=== PATIENT | female | born 1965 | race American Indian/Alaskan Native ===

== ENCOUNTER 2017-09-20 06:24 | Day surgery (SDC) | payer BC ==
[2017-09-20] MEDS ORDERED: WATER FOR IRRIG STERILE IR ONE (07:11)
[2017-09-20] MEDS ORDERED: DIPRIVAN 10 MG/ML IV ONE ×5 (07:41→10:16)
--- NOTE | 2017-09-20 08:08 | Discharge Summary ---
Providers - Providers Date of discharge: 09/20/17 Attending physician: VALERIA ANTHONY Primary care physician: CECILIA APONTE Hospitalization Condition: Good Procedures: egd Disposition: TO HOME OR SELFCARE Core Measure Documentation - Palliative Care Palliative Care/ Comfort Measures: Not Applicable - Core Measures Any of the following diagnoses?: none Exam - Physical Exam Narrative exam: unchanged from pre-op Plan Activity: no restrictions Weight Bearing Status: Full Weight Bearing Diet: regular Follow up with: CECILIA APONTE MD [Primary Care Provider] - 7 Days
--- NOTE | 2017-09-20 08:09 | Operative Report ---
Operative Report Operative Report: OPERATIVE REPORT - EGD DATE 09/20/17 SURGERY: Upper endoscopy. SURGEON: Zuleika Snell M.D. PRE OP DX: dyspepsia POST OP DX: hiatal hernia TYPE OF ANESTHESIA: MAC. ESTIMATED BLOOD LOSS: None. COMPLICATIONS: None. SPECIMENS REMOVED: None. FINDINGS: 1. Small hiatal hernia. 2. Otherwise, normal esophagus, stomach and first portion of duodenum. INDICATIONS:INDICATION FOR PROCEDURE: Patient is a 52-year-old female with a long history of morbid obesity. She is planned to have a weight loss procedure and is here for preoperative planning EGD. We are looking for any abnormal anatomy or pathology that may prohibit or delay her procedure. PROCEDURE DETAILS: After consent was reviewed, patient was taken back to the operating room where patient was placed in the left lateral decubitus position and a bite block was placed in the mouth. After a time-out was called, MAC anesthesia was initiated. I then passed the endoscope into her oropharynx, into her esophagus, visualized the entire esophagus, which was all within normal limits. I then visualized the stomach and the first portion of the duodenum and there were no abnormalities I could clearly visualize. I then retroflexed the scope in the stomach and visualized the hiatus and I could see a small hiatal hernia. I then desufflated the stomach and removed the endoscope. Patient tolerated procedure well and was transferred to recovery room in good and stable condition.
--- NOTE | 2017-09-20 08:24 | Anesthesia Consultation ---
Anesthesia Consult and Med Hx Date of service: 09/20/17 - Airway Anesthetic Teeth Evaluation: Good ROM Head & Neck: Adequate Mental/Hyoid Distance: Adequate Mallampati Class: Class I Intubation Access Assessment: Good - Pulmonary Exam CTA: Yes - Cardiac Exam Cardiac Exam: RRR - Pre-Operative Health Status ASA Pre-Surgery Classification: ASA3 Proposed Anesthetic Plan: MAC - Pulmonary Hx Sleep Apnea: Yes - Cardiovascular System Hx Hypertension: Yes - Gastrointestinal Hx Gastroesophageal Reflux Disease: Yes (on meds) - Endocrine Hx Non-Insulin Dependent Diabetes: Yes - Other Systems Hx Obesity: Yes - Additional Comments Anesthesia Medical History Comments: breast CA in 2009
--- NOTE | 2017-09-20 08:25 | Anesthesia Day of Surgery ---
Anesthesia Day of Surgery - Day of Surgery Patient Examined: Yes Patient H&P Reviewed: Yes Patient is NPO: Yes
[2017-09-20] MEDS: NACL 0.9% 1000 ML 1,000 ML IV SCH ×2 (09:23→10:42)
[2017-09-20] MEDS ORDERED: XYLOCAINE MPF 2% ONE (10:30)
[2017-09-20 10:42] VITALS: BP 122/68
--- NOTE | 2017-09-20 10:58 | Post Anesthesia Evaluation ---
- Post Anesthesia Evaluation Patient Participated: Yes Airway Patent: Yes Stable Respiratory Function: Yes Nausea/Vomiting: No Temp > 96.8F: Yes Pain Manageable: Yes Adequeate Hydration: Yes Anesthesia Complications: No Block Receding Appropriately: Not Applicable Patient on Ventilator: No
== END 2017-09-20 06:25 | disposition home or self-care (01) ==
LOC: GIO 06:24
PROVIDERS: ATTEND Surgery
DX: R10.13 Epigastric pain (principal); K44.9 Diaphragmatic hernia without obstruction or gangrene; E11.9 Type 2 diabetes mellitus without complications; I10 Essential (primary) hypertension; F32.9 Major depressive disorder, single episode, unspecified; G47.30 Sleep apnea, unspecified; K21.9 Gastro-esophageal reflux disease without esophagitis; M06.80 Other specified rheumatoid arthritis, unspecified site; Z68.41 Body mass index [BMI] 40.0-44.9, adult; E66.01 Morbid (severe) obesity due to excess calories; Z90.10 Acquired absence of unspecified breast and nipple; Z96.652 Presence of left artificial knee joint; Z99.89 Dependence on other enabling machines and devices; Z96.89 Presence of other specified functional implants; Z80.42 Family history of malignant neoplasm of prostate; Z83.3 Family history of diabetes mellitus; Z82.49 Family history of ischemic heart disease and other diseases of the circulatory system; Z79.899 Other long term (current) drug therapy
CPT/HCPCS: 43235; 82962; J2704; J7030

== ENCOUNTER 2017-09-26 06:16 | Inpatient (IN) | payer BC ==
[~2017-09-26 06:16] MED LIST: ADRENALIN SUB-Q ONE; MARCAINE 0.5% INFILTRATI ONE; NACL 0.9% 1000 ML 1,000 ML IV SCH; NACL 0.9% IR ONE; XYLOCAINE 1% 20 mL INFILTRATI ONE
[2017-09-26] MEDS ORDERED: ANCEF/STERILE WATER 2 GM/20 ML IV NR (07:00)
[2017-09-26] MEDS ORDERED: VERSED IV NR (07:00)
[2017-09-26] MEDS ORDERED: PEPCID IV NR (07:00)
[2017-09-26] MEDS ORDERED: TRANSDERM-SCOP TD NR (07:00)
[2017-09-26] MEDS ORDERED: LOVENOX SUB-Q NR (07:00)
[2017-09-26] MEDS ORDERED: FLAGYL 500 MG/100 ML 500 MG/100 ML BAG IV NR (07:00)
--- NOTE | 2017-09-26 07:06 | Anesthesia Consultation ---
Anesthesia Consult and Med Hx Date of service: 09/26/17 - Airway Anesthetic Teeth Evaluation: Good ROM Head & Neck: Adequate Mental/Hyoid Distance: Adequate Mallampati Class: Class I Intubation Access Assessment: Good - Pulmonary Exam CTA: Yes - Cardiac Exam Cardiac Exam: RRR - Pre-Operative Health Status ASA Pre-Surgery Classification: ASA3 Proposed Anesthetic Plan: General - Pulmonary Hx Smoking: Yes (1/2 A PACK DAILY FOR 15 YEARS, QUIT 4MOS AGO) Hx Sleep Apnea: Yes (cpap) - Cardiovascular System Hx Hypertension: Yes - Central Nervous System Hx Psychiatric Problems: Yes - Gastrointestinal Hx Gastroesophageal Reflux Disease: Yes (on meds) - Endocrine Hx Non-Insulin Dependent Diabetes: Yes (diet controlled) - Hematic Hx Anemia: Yes - Other Systems Hx Alcohol Use: No Hx Substance Use: No Hx Cancer: Yes Hx Obesity: Yes (morbid)
[2017-09-26] MEDS ORDERED: ZOFRAN IV PRN ×2 (07:07→07:29)
[2017-09-26] MEDS ORDERED: MORPHINE IV PRN ×2 (07:07→07:29)
--- NOTE | 2017-09-26 07:07 | Anesthesia Day of Surgery ---
Anesthesia Day of Surgery - Day of Surgery Patient Examined: Yes Patient H&P Reviewed: Yes Patient is NPO: Yes
[2017-09-26 07:08] LABS: Basophils % (Auto) 0.6 % (0.0-1.8); Eosinophils % (Auto) 3.4 % (0.0-4.3); Hematocrit 37.2 % (30.3-42.9); Hemoglobin 11.5 gm/dl (10.1-14.3); Mean Corpuscular HGB Conc 31 % (30-34); Mean Corpuscular Volume 72 fl (79-97); Platelet Count 223 K/mm3 (140-440); Red Blood Count 5.17 M/mm3 (3.65-5.03); Red Cell Distribution Width 14.1 % (13.2-15.2); White Blood Count 5.2 K/mm3 (4.5-11.0)
[2017-09-26 07:15] LABS: Mean Corpuscular Hemoglobin 22 pg (28-32)
[2017-09-26 07:22] LABS: Bacteria,Urine 1+ /HPF (Negative); Bilirubin,Urine NEG (Negative); Blood,Urine SM (Negative); Ketones,Urine 20 mg/dL (Negative); Leukocyte Esterase,Urine LG (Negative); Mucus,Urine FEW /HPF; Nitrite,Urine NEG (Negative); Protein,Urine <15 mg/dL mg/dL (Negative); Urobilinogen,Urine < 2.0 mg/dL (<2.0)
[2017-09-26 07:27] LABS: Alanine Aminotransferase 30 units/L (7-56); Albumin 3.8 g/dL (3.9-5); Albumin/Globulin Ratio 1.2 %; Alkaline Phosphatase 38 units/L (35-129); Anion Gap 18 mmol/L; BUN/Creatinine Ratio 19; Blood Urea Nitrogen 13 mg/dL (7-17); Calcium 9.2 mg/dL (8.4-10.2); Carbon Dioxide 25 mmol/L (22-30); Chloride 99.3 mmol/L (98-107); Glucose 111 mg/dL (65-100); Potassium 3.4 mmol/L (3.6-5.0); Sodium 139 mmol/L (137-145); Total Protein 7.1 g/dL (6.3-8.2)
[2017-09-26] MEDS ORDERED: DILAUDID ONE (07:27)
[2017-09-26] MEDS ORDERED: DIPRIVAN 10 MG/ML IV ONE (07:27)
[2017-09-26] MEDS ORDERED: XYLOCAINE 1% 20 mL ONE (07:29)
[2017-09-26] MEDS ORDERED: SUBLIMAZE ONE (07:29)
[2017-09-26] MEDS ORDERED: MARCAINE 0.5% 30 ML INFILTRATI ONE (07:29)
[2017-09-26] MEDS ORDERED: MYLICON PO PRN (07:29)
[2017-09-26] MEDS ORDERED: REGLAN IV PRN (07:29)
[2017-09-26] MEDS ORDERED: NORCO PO PRN (07:29)
[2017-09-26] MEDS ORDERED: APRESOLINE IV PRN (07:29)
[2017-09-26] MEDS ORDERED: ADRENALIN ONE (07:29)
[2017-09-26] MEDS ORDERED: DILAUDID IV PRN (07:32)
[2017-09-26] MEDS ORDERED: NEURONTIN PO NR (08:00)
[2017-09-26] MEDS ORDERED: ePHEDrine SULFATE ONE (08:10)
[2017-09-26] MEDS ORDERED: NACL 0.9% IR ONE ×2 (08:25)
[2017-09-26] MEDS ORDERED: ADRENALIN SUB-Q ONE (08:25)
[2017-09-26] MEDS ORDERED: XYLOCAINE 1% 20 mL INFILTRATI ONE (08:25)
[2017-09-26] MEDS ORDERED: MARCAINE 0.5% INFILTRATI ONE (08:25)
[2017-09-26] MEDS ORDERED: ZEMURON IV ONE (10:25)
[2017-09-26] MEDS ORDERED: DECADRON ONE (10:25)
[2017-09-26] MEDS ORDERED: XYLOCAINE MPF 2% ONE (10:25)
[2017-09-26] MEDS ORDERED: ROBINUL ONE (10:25)
[2017-09-26] MEDS ORDERED: NEOSTIGMINE ONE (10:25)
[2017-09-26] MEDS ORDERED: ZOFRAN ONE (10:25)
--- NOTE | 2017-09-26 10:45 | Operative Report ---
Operative Report Operative Report: POSTOPERATIVE DIAGNOSES: Morbid obesity PROCEDURES PERFORMED: 1. Laparoscopic gastric bypass. 2. EGD. ANESTHESIA: General endotracheal tube intubation. SPECIMENS: None. ESTIMATED BLOOD LOSS: Less than 10 mL. FINDINGS: Normal anatomy. COMPLICATIONS: None. INDICATION: Ms. Kim is a 52-year-old female with history of morbid obesity. She has tried numerous methods to loose weight but has been unsuccessful. She signed informed consent and expressed understanding of risks and benefits. DESCRIPTION OF PROCEDURE: Patient was brought to the OR suite, laid in supine position. Bilateral lower extremity SCDs were placed. General anesthesia was induced via successful endotracheal tube intubation. Patient's abdomen was prepped and draped in sterile fashion. Veress needle was inserted with ease into left upper quadrant. Insufflation to 12-15 was completed. Next using Optiview technique, a 12-mm trocar was placed into the abdominal cavity under direct vision. There was noted to be no gross injury to any intraabdominal structures. at the site of the veress needle insertion and the veress needle was removed. 5 working trocars were placed under direct visualization, 12 mm in the right mid abdomen mid clavicular line and four 5-mm trocars in the right upper quadrant, epigastric, left upper quadrant and left mid abdomen. At this time, the ligament of Treitz identified and followed down approximately 30 cm and the jejunum was transected. The distal segment of jejunum was then traced for approximately 75 cm and a stable effy-[id number]-wqfw jejunojejunostomy was performed. The common enterotomy was closed with 2 firings of the endoscopic stapler. The mesenteric defect was closed with running Surgidac suture. This anastomosis was found to be patent without kink, obstruction or bleeding. At this time, the patient was placed in steep reverse Trendelenburg position. A liver retractor was placed through the epigastric port to elevate the left lateral lobe of the liver. A small gastric pouch was formed. The Boris limb was then brought in an antegastric antecolic fashion and secured with 2 stay sutures to the gastric pouch. After this, the enterotomies were made with Harmonic scalpel, and a snoy-oo-tdws stapled gastrojejunostomy was performed with a mechanical stapler. After this, a 2-layer running closure using Polysorb suture were done, the first being mucosal approximation prior to completion of the first layer. Next an EGD scope beyond the anastomosis to act as a stent. The first layer was completed, the second was then performed. After this, the EGD was retracted slightly. A bowel clamp was placed in a proximal Boris limb. The anastomosis was submerged under saline. Via intraluminal EGD insufflation, there was noted be no bubbles in the saline indicating an airtight anastomosis. There was noted to be no obstruction or bleeding intraluminally in the pouch or the anastomosis. At this time, the scope was removed. The saline was aspirated. Tiseel was placed over the anastomosis. All trocars were removed under direct visualization and the abdomen was then desufflated. The skin incisions were closed with 4-0 Monocryl followed by Dermabond dressings. Patient was awoken and taken to recovery in stable condition. All counts were correct.
[2017-09-26] MEDS ORDERED: LACTATED RINGERS 1,000 ML IV SCH (11:00)
--- NOTE | 2017-09-26 11:18 | Post Anesthesia Evaluation ---
- Post Anesthesia Evaluation Patient Participated: Yes Airway Patent: Yes Stable Respiratory Function: Yes Temp > 96.8F: Yes Pain Manageable: Yes Adequeate Hydration: Yes Anesthesia Complications: No
[2017-09-26] MEDS: FLAGYL 500 MG/100 ML 500 MG/100 ML BAG IV SCH ×2 (15:56→22:40)
[2017-09-26] MEDS ORDERED: ANCEF/NS 1 GM/50 ML 1 GM/50 ML BAG IV SCH (16:00)
[2017-09-26] MEDS: ceFAZolin 1 GM in NACL 0.9% 20 ML IV SCH (18:35)
[2017-09-27] MEDS: ceFAZolin 1 GM in NACL 0.9% 20 ML IV SCH (03:00)
[2017-09-27 04:02] LABS: Basophils % (Auto) 0.2 % (0.0-1.8); Hematocrit 34.1 % (30.3-42.9); Hemoglobin 10.9 gm/dl (10.1-14.3); Mean Corpuscular HGB Conc 32 % (30-34); Mean Corpuscular Volume 73 fl (79-97); Platelet Count 190 K/mm3 (140-440); Red Blood Count 4.68 M/mm3 (3.65-5.03); Red Cell Distribution Width 14.3 % (13.2-15.2); White Blood Count 9.9 K/mm3 (4.5-11.0)
[2017-09-27 04:05] LABS: Mean Corpuscular Hemoglobin 23 pg (28-32)
[2017-09-27 04:24] LABS: Anion Gap 19 mmol/L; BUN/Creatinine Ratio 9; Blood Urea Nitrogen 7 mg/dL (7-17); Calcium 8.4 mg/dL (8.4-10.2); Carbon Dioxide 23 mmol/L (22-30); Chloride 102.6 mmol/L (98-107); Glucose 114 mg/dL (65-100); Sodium 141 mmol/L (137-145)
--- NOTE | 2017-09-27 06:28 | Discharge Summary ---
Providers - Providers Date of Admission: 09/26/17 06:16 Date of discharge: 09/27/17 Attending physician: VALERIA ANTHONY Hospitalization Reason for admission: Bariatric Surgery Condition: Good Procedures: Laprascopic Gastric Bypass Hospital course: 52 yo F admitted for Laprascopic gastric bypass surgery post-op monitoring. Pt doing well POD 1. Advancing diet to clear liquids today. Pt ambulating and using incentive spirometer regularly. Wounds are clean and dry. Denies any abdominal pain. Pt to f/u for wound check. Disposition: DC-01 TO HOME OR SELFCARE Core Measure Documentation - Palliative Care Palliative Care/ Comfort Measures: Not Applicable - Core Measures Any of the following diagnoses?: none Exam - Constitutional Vitals: Temp Pulse Resp BP Pulse Ox 98.8 F 82 20 126/60 96 09/27/17 06:19 09/27/17 06:19 09/27/17 06:19 09/27/17 06:19 09/27/17 06:19 General appearance: Present: no acute distress, well-nourished - EENT Eyes: Present: EOM intact ENT: hearing intact - Neck Neck: Present: normal ROM - Respiratory Respiratory effort: normal - Cardiovascular Rhythm: regular Heart Sounds: Present: S1 & S2 - Abdominal General gastrointestinal: Present: soft, non-tender, non-distended, normal bowel sounds - Integumentary Integumentary: Present: clear, dry - Psychiatric Psychiatric: appropriate mood/affect, intact judgment & insight, memory intact, cooperative - Neurologic Neurologic: CNII-XII intact, moves all extremities Plan Activity: other (No heavy lifting over 15lbs for 6 weeks) Weight Bearing Status: Full Weight Bearing Diet: clear liquids, low carbohydrate Wound: keep clean and dry Additional Instructions: F/u for wound check Follow up with: HAYLEY PIPER [Other] - 7 Days
[2017-09-27] MEDS ORDERED: COZAAR PO SCH (10:00)
[2017-09-27] MEDS ORDERED: LOVENOX SUB-Q SCH (10:00)
[2017-09-27 12:01] VITALS: BP 126/74
== END 2017-09-27 14:45 | disposition home or self-care (01) | DRG 621 ==
LOC: 3A 06:16 → 3B-SURG 12:50
PROVIDERS: ADMIT Surgery; ATTEND Surgery
PROC: 0D164ZA Bypass Stomach to Jejunum, Percutaneous Endoscopic Approach (ICD-10-PCS; principal; 2017-09-26)
PROC: 0DJ08ZZ Inspection of Upper Intestinal Tract, Via Natural or Artificial Opening Endoscopic (ICD-10-PCS; 2017-09-26)
DX: E66.01 Morbid (severe) obesity due to excess calories (principal); Z68.41 Body mass index [BMI] 40.0-44.9, adult; Z71.3 Dietary counseling and surveillance; Z87.891 Personal history of nicotine dependence; G47.30 Sleep apnea, unspecified; K21.9 Gastro-esophageal reflux disease without esophagitis; Z85.9 Personal history of malignant neoplasm, unspecified; E11.9 Type 2 diabetes mellitus without complications; I10 Essential (primary) hypertension; F32.9 Major depressive disorder, single episode, unspecified
CPT/HCPCS: 36415; 80048; 80053; 81001; 82962; 85025; 94760; A4217; C9250; J0171; J0690; J1100; J1170; J1650; J2250; J2270; J2405; J2704; J2710; J3010; J7030; J7120